=== PATIENT | male | born 2000 | race Caucasian/White ===

== ENCOUNTER 2018-10-27 11:31 | Day surgery (SDC) | payer OTHER ==
[~2018-10-27 11:31] MED LIST: CEFAZOLIN 2 GM/50 ML (PMX) 50 ML IVPB; LACTATED RINGER'S 1,000 ML IV*
[2018-10-27] MEDS ORDERED: DIPHENHYDRAMINE 50 MG INJ IV (14:00)
[2018-10-27] MEDS ORDERED: MEPERIDINE 25 MG INJ IV (14:00)
[2018-10-27] MEDS ORDERED: OXYCODONE/ACETAMINOPHEN (5/325) TAB PO (14:00)
[2018-10-27] MEDS ORDERED: FENTAnyl 50 MCG/ML VIAL IV ×3 (14:00)
[2018-10-27] MEDS ORDERED: ALBUTEROL 0.083% (NEB) 2.5 MG/3 ML AMP HHN (14:00)
[2018-10-27] MEDS ORDERED: hydrALAzine 20 MG INJ IV (14:00)
[2018-10-27] MEDS ORDERED: EPHEDrine SULFATE 50 MG/5 ML SYG IV (14:00)
[2018-10-27] MEDS ORDERED: ONDANSETRON 4 MG INJ IV (14:00)
[2018-10-27] MEDS ORDERED: MIDAZOLAM 1 MG/ML 2 ML INJ IV (14:00)
[2018-10-27] MEDS ORDERED: IPRATROPIUM (NEB) 0.5 MG/2.5 ML AMP HHN (14:00)
[2018-10-27] MEDS ORDERED: TRIMETHOBENZAMIDE 100 MG/ML VIAL IM (14:00)
[2018-10-27] MEDS ORDERED: LABETALOL HCL 20MG INJ IV (14:00)
[2018-10-27] MEDS ORDERED: HYDROmorphONE 1 MG/5 ML IV SYRINGE IV ×3 (14:00)
[2018-10-27] MEDS ORDERED: PROPOFOL 20 ML (14:03)
[2018-10-27] MEDS ORDERED: CEFAZOLIN 1 GM INJ (14:03)
[2018-10-27] MEDS ORDERED: NEOSTIGMINE 3 MG/3 ML SYRINGE (14:03)
[2018-10-27] MEDS ORDERED: GLYCOPYRROLATE 0.4 MG INJ (14:03)
[2018-10-27] MEDS ORDERED: ROCURONIUM 50 MG INJ (14:03)
[2018-10-27] MEDS ORDERED: DEXAMETHASONE 4 MG/ML 5 ML INJ (14:03)
[2018-10-27] MEDS ORDERED: FENTAnyl 50 MCG/ML VIAL ×2 (14:03→14:32)
[2018-10-27] MEDS ORDERED: MIDAZOLAM 1 MG/ML 2 ML INJ (14:03)
[2018-10-27] MEDS ORDERED: ONDANSETRON 4 MG INJ (14:03)
[2018-10-27] MEDS: POLYMYXIN/BACITRACIN 1L IRRIG IRR (14:28)
[2018-10-27] MEDS: BUPIVACAINE 0.25% (MPF) 30 ML INJ (14:34)
[2018-10-27] MEDS ORDERED: POLYMYXIN/BACITRACIN 1L IRRIG (14:45)
[2018-10-27] MEDS: OXYCODONE/ACETAMINOPHEN (5/325) TAB PO (16:10)
== END 2018-10-27 16:25 | disposition home or self-care (01) ==
LOC: SDS 11:31
DX: D16.21 Benign neoplasm of long bones of right lower limb (principal)
CPT/HCPCS: 27635